=== PATIENT | male | born 1965 | race Caucasian/White ===

== ENCOUNTER 2017-10-25 17:25 | Emergency (ER) | payer OTHER ==
[~2017-10-25] VITALS: Ht 185.4 cm; Wt 90.9 kg
[2017-10-25] MEDS ORDERED: LISI-661 PO (17:30)
[2017-10-25] MEDS ORDERED: ACETAMINOPHEN 500 MG TABLET PO ONE (18:45)
[2017-10-25 19:03] LABS: ANION GAP 7 mmol/L (8-16); CALCIUM, TOTAL 8.6 mg/dL (8.8-10.5); CARBON DIOXIDE 29 mmol/L (22-29); CHLORIDE 103 mmol/L (98-107); CREATININE 0.92 mg/dL (0.60-1.30); GLOMERULAR FILTR. RATE CALC > 60 mL/min (>60); POTASSIUM 4.4 mmol/L (3.5-5.1); SODIUM SERUM 139 mmol/L (136-145); UREA NITROGEN, BLOOD 19 mg/dL (7-18)
[2017-10-25 19:05] LABS: BASOPHILS % (AUTO) 0.2 % (0.0-2.0); EOSINOPHILS % (AUTO) 1.6 % (1.0-6.0); HEMOGLOBIN 14.5 g/dL (13.5-17.5); LYMPHOCYTES # (AUTO) 1.7 K/uL (1.0-4.8); LYMPHOCYTES % (AUTO) 21.6 % (22.0-44.0); MEAN CORPUSCULAR HEMOGLOBIN 31.1 pg (26.0-34.0); MEAN CORPUSCULAR HGB CONC 34.5 G/dL (31.0-37.0); MEAN CORPUSCULAR VOLUME 90 fL (80-100); MONOCYTES # (AUTO) 0.6 K/uL (0.1-1.0); MONOCYTES % (AUTO) 7.1 % (2.0-9.0); NEUTROPHILS # (AUTO) 5.6 K/uL (1.8-7.7); NEUTROPHILS % (AUTO) 69.5 % (40.0-70.0); PLATELET COUNT (AUTO) 190 K/uL (150-450); RED BLOOD CELL COUNT(AUTO) 4.65 MIL/uL (4.50-5.90); RED CELL DISTRIBUTION WIDTH 13.9 % (11.5-14.5)
[2017-10-25 19:38] VITALS: BP 124/73
== END 2017-10-25 19:50 | disposition home or self-care (01) ==
LOC: EMS 17:29
DX: R51 Headache (principal); R42 Dizziness and giddiness; I10 Essential (primary) hypertension; J45.909 Unspecified asthma, uncomplicated
CPT/HCPCS: 70450; 93005; 99285

== ENCOUNTER 2017-12-25 16:43 | Emergency (ER) | payer OTHER ==
[~2017-12-25] VITALS: Ht 180.3 cm; Wt 90.9 kg
[~2017-12-25 16:43] MED LIST: LISI-661 PO
[2017-12-25 21:45] VITALS: BP 148/90
== END 2017-12-25 21:54 | disposition home or self-care (01) ==
LOC: EMS 16:44
DX: G91.9 Hydrocephalus, unspecified (principal); J45.909 Unspecified asthma, uncomplicated; I10 Essential (primary) hypertension
CPT/HCPCS: 70450; 93005; 99284

== ENCOUNTER 2018-02-14 13:51 | Emergency (ER) | payer OTHER ==
[~2018-02-14] VITALS: Ht 167.6 cm; Wt 100.0 kg
[2018-02-14] MEDS ORDERED: IBUPROFEN 800 MG TABLET PO ONE (16:15)
[2018-02-14 16:45] VITALS: BP 126/78
== END 2018-02-14 16:51 | disposition home or self-care (01) ==
LOC: EMS 14:03
DX: R51 Headache (principal); F32.9 Major depressive disorder, single episode, unspecified; I10 Essential (primary) hypertension; J45.909 Unspecified asthma, uncomplicated
CPT/HCPCS: 70450; 99284

== ENCOUNTER 2019-04-27 14:51 | Emergency (ER) | payer OTHER ==
[~2019-04-27] VITALS: Ht 177.8 cm; Wt 88.6 kg
[2019-04-27 17:22] LABS: BASOPHILS % (AUTO) 0.7 % (0.0-2.0); EOSINOPHILS % (AUTO) 2.2 % (1.0-6.0); HEMATOCRIT 41.3 % (41-53); HEMOGLOBIN 13.8 g/dL (13.5-17.5); LYMPHOCYTES # (AUTO) 1.8 K/uL (1.0-4.8); LYMPHOCYTES % (AUTO) 26.2 % (22.0-44.0); MEAN CORPUSCULAR HEMOGLOBIN 29.6 pg (26.0-34.0); MEAN CORPUSCULAR HGB CONC 33.4 G/dL (31.0-37.0); MEAN CORPUSCULAR VOLUME 89 fL (80-100); MONOCYTES # (AUTO) 0.7 K/uL (0.1-1.0); MONOCYTES % (AUTO) 10.6 % (2.0-9.0); NEUTROPHILS % (AUTO) 60.3 % (40.0-70.0); PLATELET COUNT (AUTO) 181 K/uL (150-450); RED BLOOD CELL COUNT(AUTO) 4.65 MIL/uL (4.50-5.90); RED CELL DISTRIBUTION WIDTH 13.9 % (11.5-14.5)
[2019-04-27 17:40] LABS: ANION GAP 4 mmol/L (8-16); CALCIUM, TOTAL 8.8 mg/dL (8.8-10.5); CARBON DIOXIDE 31 mmol/L (22-29); CHLORIDE 107 mmol/L (98-107); CREATININE 0.83 mg/dL (0.60-1.30); GLOMERULAR FILTR. RATE CALC > 60 mL/min (>60); GLUCOSE,RANDOM 84 mg/dL (70-110); POTASSIUM 4.8 mmol/L (3.5-5.1); SODIUM SERUM 142 mmol/L (136-145); UREA NITROGEN, BLOOD 8 mg/dL (7-18)
[2019-04-27 17:45] LABS: B-TYPE NATRIURETIC PEPTIDE 22 pg/mL (0-100)
[2019-04-27 17:46] LABS: ALANINE AMINOTRANSFERASE 37 U/L (12-78); ALBUMIN 3.8 g/dL (3.4-5.0); ALKALINE PHOSPHATASE 111 U/L (46-116); ASPARTATE AMINOTRANSFERASE 21 U/L (15-37); BILIRUBIN,TOTAL 0.3 mg/dL (0.1-1.0); TOTAL PROTEIN, SERUM 7.6 g/dL (6.4-8.2)
[2019-04-27 19:50] VITALS: BP 116/71
== END 2019-04-27 19:45 | disposition home or self-care (01) ==
LOC: EMS 14:52
DX: R60.0 Localized edema (principal); L03.116 Cellulitis of left lower limb; L03.115 Cellulitis of right lower limb; R06.09 Other forms of dyspnea; J45.909 Unspecified asthma, uncomplicated; I10 Essential (primary) hypertension; Z79.899 Other long term (current) drug therapy
CPT/HCPCS: 93005; 93970

== ENCOUNTER 2019-06-19 05:57 | Emergency (ER) | payer OTHER ==
[~2019-06-19] VITALS: Ht 175.3 cm; Wt 90.9 kg
[2019-06-19 07:22] LABS: BASOPHILS % (AUTO) 0.5 % (0.0-2.0); EOSINOPHILS % (AUTO) 2.7 % (1.0-6.0); HEMATOCRIT 40.7 % (41-53); HEMOGLOBIN 13.4 g/dL (13.5-17.5); LYMPHOCYTES % (AUTO) 27.9 % (22.0-44.0); MEAN CORPUSCULAR HGB CONC 32.8 G/dL (31.0-37.0); MEAN CORPUSCULAR VOLUME 91 fL (80-100); MONOCYTES % (AUTO) 13.6 % (2.0-9.0); NEUTROPHILS # (AUTO) 4.1 K/uL (1.8-7.7); NEUTROPHILS % (AUTO) 55.3 % (40.0-70.0); PLATELET COUNT (AUTO) 170 K/uL (150-450); RED BLOOD CELL COUNT(AUTO) 4.46 MIL/uL (4.50-5.90); RED CELL DISTRIBUTION WIDTH 14.7 % (11.5-14.5)
[2019-06-19 07:35] LABS: ANION GAP 9 mmol/L (8-16); CALCIUM, TOTAL 8.6 mg/dL (8.8-10.5); CARBON DIOXIDE 27 mmol/L (22-29); CHLORIDE 103 mmol/L (98-107); CREATININE 0.76 mg/dL (0.60-1.30); GLOMERULAR FILTR. RATE CALC > 60 mL/min (>60); GLUCOSE,RANDOM 83 mg/dL (70-110); POTASSIUM 3.7 mmol/L (3.5-5.1); SODIUM SERUM 139 mmol/L (136-145); UREA NITROGEN, BLOOD 16 mg/dL (7-18)
[2019-06-19 07:48] LABS: B-TYPE NATRIURETIC PEPTIDE 6 pg/mL (0-100)
[2019-06-19 07:59] LABS: ALANINE AMINOTRANSFERASE 29 U/L (12-78); ALBUMIN 4.1 g/dL (3.4-5.0); ALKALINE PHOSPHATASE 98 U/L (46-116); ASPARTATE AMINOTRANSFERASE 14 U/L (15-37); BILIRUBIN,TOTAL 0.3 mg/dL (0.1-1.0); CREATINE KINASE, TOTAL ONLY 185 U/L (39-308); TOTAL PROTEIN, SERUM 7.5 g/dL (6.4-8.2)
[2019-06-19 09:50] VITALS: BP 119/74
== END 2019-06-19 10:01 | disposition home or self-care (01) ==
LOC: EMS 05:58
DX: I83.93 Asymptomatic varicose veins of bilateral lower extremities (principal); R60.0 Localized edema; J45.909 Unspecified asthma, uncomplicated; I10 Essential (primary) hypertension; Z79.899 Other long term (current) drug therapy
CPT/HCPCS: 93005; 93970

== ENCOUNTER 2021-06-01 09:45 | Emergency (ER) | payer OTHER ==
[~2021-06-01] VITALS: Ht 172.7 cm; Wt 100.0 kg
[~2021-06-01 09:45] MED LIST changes: -LISI-661 PO; +LISI-893 PO
[2021-06-01 10:26] LABS: COVID AG,FIA SOURCE NASOPHARYNGEAL
[2021-06-01] MEDS ORDERED: ALBUTEROL SULFATE 5 MG/ML 20 ML NEB SOLN [BULK] NEB ONE (10:30)
[2021-06-01] MEDS ORDERED: ACETAMINOPHEN 500 MG TABLET PO ONE (10:30)
[2021-06-01 11:06] LABS: BASOPHILS % (AUTO) 0.3 % (0.0-2.0); EOSINOPHILS % (AUTO) 0.7 % (1.0-6.0); HEMATOCRIT 35.1 % (41-53); HEMOGLOBIN 11.8 g/dL (13.5-17.5); LYMPHOCYTES # (AUTO) 1.1 K/uL (1.0-4.8); LYMPHOCYTES % (AUTO) 12.5 % (22.0-44.0); MEAN CORPUSCULAR HEMOGLOBIN 30.9 pg (26.0-34.0); MEAN CORPUSCULAR HGB CONC 33.5 G/dL (31.0-37.0); MEAN CORPUSCULAR VOLUME 92 fL (80-100); MONOCYTES # (AUTO) 0.8 K/uL (0.1-1.0); MONOCYTES % (AUTO) 9.1 % (2.0-9.0); NEUTROPHILS # (AUTO) 6.8 K/uL (1.8-7.7); NEUTROPHILS % (AUTO) 77.4 % (40.0-70.0); PLATELET COUNT (AUTO) 134 K/uL (150-450); RED BLOOD CELL COUNT(AUTO) 3.81 MIL/uL (4.50-5.90); RED CELL DISTRIBUTION WIDTH 13.9 % (11.5-14.5)
[2021-06-01 11:12] LABS: ANION GAP 5 mmol/L (8-16); CALCIUM, TOTAL 8.5 mg/dL (8.8-10.5); CARBON DIOXIDE 28 mmol/L (22-29); CHLORIDE 106 mmol/L (98-107); CREATININE 0.87 mg/dL (0.60-1.30); GLOMERULAR FILTR. RATE CALC > 60 mL/min (>60); GLUCOSE,RANDOM 92 mg/dL (70-110); POTASSIUM 4.1 mmol/L (3.5-5.1); SODIUM SERUM 139 mmol/L (136-145); UREA NITROGEN, BLOOD 16 mg/dL (7-18)
[2021-06-01 11:18] LABS: ALANINE AMINOTRANSFERASE 213 U/L (12-78); ALBUMIN 3.5 g/dL (3.4-5.0); ALKALINE PHOSPHATASE 166 U/L (46-116); ASPARTATE AMINOTRANSFERASE 152 U/L (15-37); BILIRUBIN,TOTAL 0.4 mg/dL (0.1-1.0); TOTAL PROTEIN, SERUM 7.2 g/dL (6.4-8.2)
[2021-06-01] MEDS ORDERED: ALBUTEROL SULFATE HFA 90 MCG/PUFF 8 GM INHALER IH ONE (12:00)
[2021-06-01 13:49] LABS: B-TYPE NATRIURETIC PEPTIDE 42 pg/mL (0-100)
[2021-06-01 14:13] VITALS: BP 142/86
== END 2021-06-01 14:15 | disposition home or self-care (01) ==
LOC: EMS 09:46
DX: J45.909 Unspecified asthma, uncomplicated (principal); Z20.822 Contact with and (suspected) exposure to COVID-19
CPT/HCPCS: 36415; 71045; 80053; 83880; 84484; 85025; 87426; 94640; 99284; U0003; J3535; J7611

== ENCOUNTER 2021-12-31 15:47 | Emergency (ER) | payer OTHER ==
[~2021-12-31] VITALS: Ht 177.8 cm; Wt 90.9 kg
[2021-12-31] MEDS ORDERED: ALBUTEROL SULFATE HFA 90 MCG/PUFF 8 GM INHALER IH ONE (18:15)
[2021-12-31] MEDS ORDERED: DICLOFENAC SODIUM 1% 100 GM GEL [4GM] TP ONE (18:15)
[2021-12-31 21:22] VITALS: BP 130/75
== END 2021-12-31 21:37 | disposition home or self-care (01) ==
LOC: EMS 15:57
DX: M25.561 Pain in right knee (principal); J45.909 Unspecified asthma, uncomplicated; I10 Essential (primary) hypertension; Z79.899 Other long term (current) drug therapy
CPT/HCPCS: 94640; 99283; J3535

== ENCOUNTER 2022-01-08 13:34 | Emergency (ER) | payer OTHER ==
[~2022-01-08] VITALS: Ht 180.3 cm; Wt 90.9 kg
[2022-01-08] MEDS ORDERED: KETOROLAC TROMETHAMINE 60 MG/2 ML VIAL IM ONE (14:30)
[2022-01-08 15:02] VITALS: BP 149/91
[2022-01-08] MEDS ORDERED: IBUP-2070 PO (15:03)
== END 2022-01-08 15:30 | disposition home or self-care (01) ==
LOC: EMS 13:34
DX: M17.11 Unilateral primary osteoarthritis, right knee (principal); M25.561 Pain in right knee; I10 Essential (primary) hypertension; J45.909 Unspecified asthma, uncomplicated; Z79.899 Other long term (current) drug therapy
CPT/HCPCS: 96372; 99283; J1885; 29530

== ENCOUNTER 2022-01-10 20:44 | Emergency (ER) | payer OTHER ==
[~2022-01-10] VITALS: Ht 180.3 cm; Wt 90.9 kg
[~2022-01-10 20:44] MED LIST changes: +IBUP-2070 PO
[2022-01-10] MEDS ORDERED: LISI-659 PO (20:52)
[2022-01-10] MEDS ORDERED: DIPH25CA53 PO (20:52)
[2022-01-10] MEDS ORDERED: SERT-158 PO (20:52)
[2022-01-10] MEDS ORDERED: DICL-206 PO (22:15)
[2022-01-10 22:30] VITALS: BP 152/90
[2022-01-10] MEDS ORDERED: DICLOFENAC SODIUM 25 MG DR TABLET PO ONE (22:45)
== END 2022-01-10 23:48 | disposition home or self-care (01) ==
LOC: EMS 20:48
DX: M17.11 Unilateral primary osteoarthritis, right knee (principal); I10 Essential (primary) hypertension; F41.9 Anxiety disorder, unspecified; J45.909 Unspecified asthma, uncomplicated; Z79.899 Other long term (current) drug therapy
CPT/HCPCS: 99283

== ENCOUNTER 2022-05-08 10:46 | Emergency (ER) | payer OTHER ==
[~2022-05-08] VITALS: Ht 175.3 cm; Wt 102.3 kg
[~2022-05-08 10:46] MED LIST changes: +DICL-206 PO; +DIPH25CA53 PO; +LISI-659 PO; -LISI-893 PO; +SERT-158 PO
[2022-05-08] MEDS ORDERED: KETOROLAC TROMETHAMINE 60 MG/2 ML VIAL IM ONE (11:30)
[2022-05-08 11:39] LABS: BASOPHILS % (AUTO) 0.6 % (0.0-2.0); EOSINOPHILS % (AUTO) 1.8 % (1.0-6.0); HEMATOCRIT 38.9 % (41-53); HEMOGLOBIN 13.2 g/dL (13.5-17.5); LYMPHOCYTES # (AUTO) 1.7 K/uL (1.0-4.8); LYMPHOCYTES % (AUTO) 17.2 % (22.0-44.0); MEAN CORPUSCULAR HEMOGLOBIN 30.1 pg (26.0-34.0); MEAN CORPUSCULAR HGB CONC 33.8 G/dL (31.0-37.0); MEAN CORPUSCULAR VOLUME 89 fL (80-100); MONOCYTES # (AUTO) 0.9 K/uL (0.1-1.0); MONOCYTES % (AUTO) 8.6 % (2.0-9.0); NEUTROPHILS # (AUTO) 7.1 K/uL (1.8-7.7); NEUTROPHILS % (AUTO) 71.8 % (40.0-70.0); PLATELET COUNT (AUTO) 196 K/uL (150-450); RED BLOOD CELL COUNT(AUTO) 4.38 MIL/uL (4.50-5.90); RED CELL DISTRIBUTION WIDTH 13.9 % (11.5-14.5)
[2022-05-08 11:45] LABS: ANION GAP 7 mmol/L (8-16); CALCIUM, TOTAL 8.6 mg/dL (8.8-10.5); CARBON DIOXIDE 28 mmol/L (22-29); CHLORIDE 103 mmol/L (98-107); GLUCOSE,RANDOM 95 mg/dL (70-110); SODIUM SERUM 138 mmol/L (136-145); UREA NITROGEN, BLOOD 15 mg/dL (7-18)
[2022-05-08 11:47] LABS: GLOMERULAR FILTR. RATE CALC > 60 mL/min (>60)
[2022-05-08 11:50] LABS: ALANINE AMINOTRANSFERASE 27 U/L (12-78); ALBUMIN 3.5 g/dL (3.4-5.0); ALKALINE PHOSPHATASE 94 U/L (46-116); ASPARTATE AMINOTRANSFERASE 21 U/L (15-37); BILIRUBIN,TOTAL 0.5 mg/dL (0.1-1.0); LIPASE 48 U/L (73-393); TOTAL PROTEIN, SERUM 7.8 g/dL (6.4-8.2)
[2022-05-08 13:16] VITALS: BP 125/76
[2022-05-08] MEDS ORDERED: IBUP-1554 PO (13:25)
[2022-05-08] MEDS ORDERED: TRAM50TA4 PO (13:25)
== END 2022-05-08 14:30 | disposition home or self-care (01) ==
LOC: EMS 10:46
DX: M25.561 Pain in right knee (principal); I10 Essential (primary) hypertension; J45.909 Unspecified asthma, uncomplicated; F41.9 Anxiety disorder, unspecified; Z79.899 Other long term (current) drug therapy
CPT/HCPCS: 29505; 36415; 80053; 83690; 85025; 96372; 99283; J1885

== ENCOUNTER 2022-05-15 15:54 | Emergency (ER) | payer OTHER ==
[~2022-05-15] VITALS: Ht 172.7 cm; Wt 100.0 kg
[~2022-05-15 15:54] MED LIST changes: +IBUP-1554 PO; +TRAM50TA4 PO
[2022-05-15 15:55] VITALS: BP 144/84
[2022-05-15 16:50] LABS: BASOPHILS % (AUTO) 0.6 % (0.0-2.0); EOSINOPHILS % (AUTO) 1.8 % (1.0-6.0); HEMATOCRIT 40.2 % (41-53); HEMOGLOBIN 13.4 g/dL (13.5-17.5); LYMPHOCYTES # (AUTO) 1.6 K/uL (1.0-4.8); LYMPHOCYTES % (AUTO) 16.5 % (22.0-44.0); MEAN CORPUSCULAR HEMOGLOBIN 29.9 pg (26.0-34.0); MEAN CORPUSCULAR HGB CONC 33.3 G/dL (31.0-37.0); MEAN CORPUSCULAR VOLUME 90 fL (80-100); MONOCYTES # (AUTO) 0.8 K/uL (0.1-1.0); MONOCYTES % (AUTO) 7.9 % (2.0-9.0); NEUTROPHILS # (AUTO) 7.1 K/uL (1.8-7.7); NEUTROPHILS % (AUTO) 73.2 % (40.0-70.0); PLATELET COUNT (AUTO) 219 K/uL (150-450); RED BLOOD CELL COUNT(AUTO) 4.48 MIL/uL (4.50-5.90); RED CELL DISTRIBUTION WIDTH 13.6 % (11.5-14.5)
[2022-05-15 16:54] LABS: ANION GAP 7 mmol/L (8-16); CARBON DIOXIDE 30 mmol/L (22-29); CHLORIDE 102 mmol/L (98-107); GLOMERULAR FILTR. RATE CALC > 60 mL/min (>60); GLUCOSE,RANDOM 93 mg/dL (70-110); SODIUM SERUM 139 mmol/L (136-145); UREA NITROGEN, BLOOD 17 mg/dL (7-18)
[2022-05-15 16:57] LABS: ALANINE AMINOTRANSFERASE 39 U/L (12-78); ALKALINE PHOSPHATASE 102 U/L (46-116); AMYLASE 34 U/L (25-115); ASPARTATE AMINOTRANSFERASE 19 U/L (15-37); BILIRUBIN,TOTAL 0.3 mg/dL (0.1-1.0); TOTAL PROTEIN, SERUM 8.5 g/dL (6.4-8.2)
== END 2022-05-15 17:22 | disposition home or self-care (01) ==
LOC: EMS 15:55
DX: K29.60 Other gastritis without bleeding (principal); I10 Essential (primary) hypertension; J45.909 Unspecified asthma, uncomplicated; F41.9 Anxiety disorder, unspecified; Z79.899 Other long term (current) drug therapy
CPT/HCPCS: 80053; 82150; 85025; 99283

== ENCOUNTER 2022-05-29 10:33 | Emergency (ER) | payer OTHER ==
[~2022-05-29] VITALS: Ht 182.9 cm; Wt 100.0 kg
[~2022-05-29 10:33] MED LIST changes: -IBUP-1554 PO
[2022-05-29 11:07] VITALS: BP 138/68
[2022-05-29] MEDS ORDERED: KETOROLAC TROMETHAMINE 60 MG/2 ML VIAL IM ONE (12:45)
== END 2022-05-29 13:02 | disposition home or self-care (01) ==
LOC: EMS 10:33
DX: M13.862 Other specified arthritis, left knee (principal); M13.861 Other specified arthritis, right knee; I10 Essential (primary) hypertension; F41.9 Anxiety disorder, unspecified; J45.909 Unspecified asthma, uncomplicated; Z79.899 Other long term (current) drug therapy
CPT/HCPCS: 99283; 96372; J1885

== ENCOUNTER 2022-06-17 18:28 | Emergency (ER) | payer OTHER ==
[~2022-06-17] VITALS: Ht 167.6 cm; Wt 84.1 kg
[2022-06-17] MEDS ORDERED: KETOROLAC TROMETHAMINE 30 MG/ML VIAL IM ONE (20:30)
[2022-06-17 21:04] VITALS: BP 135/75
== END 2022-06-17 21:06 | disposition home or self-care (01) ==
LOC: EMS 18:28
DX: M17.0 Bilateral primary osteoarthritis of knee (principal); I10 Essential (primary) hypertension; J45.909 Unspecified asthma, uncomplicated; F41.9 Anxiety disorder, unspecified; Z79.899 Other long term (current) drug therapy
CPT/HCPCS: 99283; 96372; J1885

== ENCOUNTER 2022-07-04 12:41 | Emergency (ER) | payer OTHER ==
[~2022-07-04] VITALS: Ht 177.8 cm; Wt 106.8 kg
[2022-07-04] MEDS ORDERED: ALBU8HFA IH (12:54)
[2022-07-04 14:56] LABS: GLUCOMETER DEV NAME(LOC) ERT.5; GLUCOSE,POINT OF CARE 107 MG/DL (70-110)
[2022-07-04] MEDS ORDERED: GABA-1181 PO (15:20)
[2022-07-04 15:30] VITALS: BP 129/75
== END 2022-07-04 15:32 | disposition home or self-care (01) ==
LOC: EMS 12:41
DX: M79.604 Pain in right leg (principal); M79.605 Pain in left leg; M79.671 Pain in right foot; M79.672 Pain in left foot; I10 Essential (primary) hypertension; J45.909 Unspecified asthma, uncomplicated; F41.9 Anxiety disorder, unspecified; Z79.899 Other long term (current) drug therapy
CPT/HCPCS: 82948; 82962; 99283

== ENCOUNTER 2023-05-13 13:50 | Emergency (ER) | payer OTHER ==
[~2023-05-13] VITALS: Ht 172.7 cm; Wt 113.0 kg
[~2023-05-13 13:50] MED LIST changes: +ACET-66 PO; +ALBU18HF12 IH; -DICL-206 PO; +DICL-208 PO; +GABA-1181 PO; +IBUP-1492 PO; +IBUP-1554 PO; -IBUP-2070 PO; +ISOT40CA PO; +TRAM-559 PO; -TRAM50TA4 PO
[2023-05-13 14:07] VITALS: TEMP 98.3
[2023-05-13] MEDS ORDERED: KETOROLAC TROMETHAMINE 30 MG/ML VIAL IM ONE (15:15)
[2023-05-13] MEDS ORDERED: HYDROCODONE/ACETAMINOPHEN 5-325 MG TABLET PO ONE (15:15)
[2023-05-13 16:38] VITALS: BP 141/82; PULSE 66; RESP 20
== END 2023-05-13 17:02 | disposition home or self-care (01) ==
LOC: EMS 14:12
DX: M17.0 Bilateral primary osteoarthritis of knee (principal); F41.9 Anxiety disorder, unspecified; F32.A Depression, unspecified; I10 Essential (primary) hypertension
CPT/HCPCS: 99283; 96372; J1885

== ENCOUNTER 2023-06-15 12:19 | Emergency (ER) | payer OTHER ==
[~2023-06-15] VITALS: Ht 172.7 cm; Wt 97.7 kg
[2023-06-15 12:24] VITALS: TEMP 98.3
[2023-06-15 13:05] VITALS: BP 139/90; PULSE 61; RESP 16
== END 2023-06-15 13:41 | disposition home or self-care (01) ==
LOC: EMS 12:19
DX: M17.11 Unilateral primary osteoarthritis, right knee (principal); F41.9 Anxiety disorder, unspecified; F32.A Depression, unspecified; I10 Essential (primary) hypertension
CPT/HCPCS: 99281; Z7502

== ENCOUNTER 2024-06-11 10:40 | Emergency (ER) | payer OTHER ==
[~2024-06-11] VITALS: Ht 172.7 cm; Wt 111.4 kg
[~2024-06-11 10:40] MED LIST changes: -ACET-66 PO; -DICL-208 PO; +DICL50TA10 PO; -DIPH25CA53 PO; -IBUP-1492 PO; -IBUP-1554 PO; -TRAM-559 PO
[2024-06-11 10:42] VITALS: BP 139/71; TEMP 98.5
[2024-06-11] MEDS ORDERED: LISI-894 PO (10:50)
[2024-06-11] MEDS ORDERED: ATOR10TA PO (10:50)
[2024-06-11] MEDS ORDERED: SULF500T60 PO (10:50)
[2024-06-11] MEDS ORDERED: SERT-158 PO (10:50)
[2024-06-11] MEDS ORDERED: RIFA300C63 PO (10:50)
[2024-06-11] MEDS ORDERED: [UNRECOGNIZED DRUG - CODE] SQ (10:50)
[2024-06-11] MEDS ORDERED: MONT-35 PO (10:50)
[2024-06-11] MEDS ORDERED: AMLO2.5T96 PO (10:50)
[2024-06-11] MEDS ORDERED: HYDR25TA2 PO (10:50)
[2024-06-11] MEDS ORDERED: DIPH25TA19 PO (10:50)
[2024-06-11 11:22] LABS: BASOPHILS % (AUTO) 0.5 % (0.0-2.0); EOSINOPHILS % (AUTO) 0.2 % (1.0-6.0); HEMOGLOBIN 12.4 g/dL (13.5-17.5); LYMPHOCYTES # (AUTO) 1.4 K/uL (1.0-4.8); MEAN CORPUSCULAR HEMOGLOBIN 30.2 pg (26.0-34.0); MEAN CORPUSCULAR HGB CONC 32.5 G/dL (31.0-37.0); MEAN CORPUSCULAR VOLUME 93 fL (80-100); MONOCYTES # (AUTO) 1.2 K/uL (0.1-1.0); MONOCYTES % (AUTO) 8.9 % (2.0-9.0); NEUTROPHILS # (AUTO) 10.4 K/uL (1.8-7.7); NEUTROPHILS % (AUTO) 79.4 % (40.0-70.0); PLATELET COUNT (AUTO) 185 K/uL (150-450); RED BLOOD CELL COUNT(AUTO) 4.09 MIL/uL (4.50-5.90); RED CELL DISTRIBUTION WIDTH 14.6 % (11.5-14.5); WHITE BLOOD COUNT (AUTO) 13.1 K/uL (4.5-11.0)
[2024-06-11] MEDS: ALBUTEROL SULFATE 2.5 MG/0.5 ML NEB SOLUTION NEB ONE (11:27)
[2024-06-11] MEDS: IPRATROPIUM BROMIDE 0.5 MG/2.5 ML NEB SOLUTION NEB ONE ×2 (11:27→13:01)
[2024-06-11 11:31] VITALS: PULSE 78; RESP 22; O2SAT 95
[2024-06-11] MEDS: MethylPREDNISolone SOD SUCC 125 MG/2 ML VIAL IVP ONE (11:35)
[2024-06-11] MEDS: KETOROLAC TROMETHAMINE 30 MG/ML VIAL IVP ONE (11:35)
[2024-06-11 11:39] LABS: TROPONIN I-HIGH SENSITIVITY 5 ng/L (<76)
[2024-06-11 11:42] LABS: ANION GAP 2 mmol/L (8-16); CALCIUM, TOTAL 9.1 mg/dL (8.8-10.5); CARBON DIOXIDE 33 mmol/L (22-29); CHLORIDE 98 mmol/L (98-107); CREATININE 0.96 mg/dL (0.60-1.30); GLOMERULAR FILTR. RATE CALC > 60 mL/min (>60); GLUCOSE,RANDOM 93 mg/dL (70-110); POTASSIUM 3.8 mmol/L (3.5-5.1); SODIUM SERUM 133 mmol/L (136-145); UREA NITROGEN, BLOOD 11 mg/dL (7-18)
[2024-06-11 11:43] VITALS: PULSE 80; RESP 20; O2SAT 100
[2024-06-11 12:04] LABS: B-TYPE NATRIURETIC PEPTIDE 61 pg/mL (0-100)
[2024-06-11] MEDS ORDERED: ALBUTEROL SULFATE 2.5 MG/0.5 ML NEB SOLUTION NEB ONE (12:45)
[2024-06-11] MEDS ORDERED: 0.9% SODIUM CHLORIDE 5 ML NEB SOLUTION NEB ONE (12:58)
[2024-06-11] MEDS: ALBUTEROL SULFATE 2.5 MG/0.5 ML 5 ML NEB SOLUTION NEB ONE (13:01)
[2024-06-11 13:03] VITALS: PULSE 84; RESP 26; O2SAT 96
[2024-06-11] MEDS ORDERED: ACET-66 PO (13:07)
[2024-06-11] MEDS ORDERED: IBUP-1554 PO (13:07)
[2024-06-11] MEDS ORDERED: ALBU18HF12 IH (13:07)
[2024-06-11 13:40] VITALS: PULSE 82; RESP 20; O2SAT 100
== END 2024-06-11 14:00 | disposition home or self-care (01) ==
LOC: EMS 10:45
DX: R06.03 Acute respiratory distress (principal); J45.901 Unspecified asthma with (acute) exacerbation; M13.861 Other specified arthritis, right knee; R51.9 Headache, unspecified; I10 Essential (primary) hypertension
CPT/HCPCS: 99285; 96374; 71045; 96375; 80048; 83880; 84484; 85025; 36415; 94640; 93005; J1885; J2919; J7613

== ENCOUNTER 2025-03-03 15:04 | Emergency (ER) | payer OTHER ==
[~2025-03-03] VITALS: Ht 182.9 cm; Wt 126.4 kg
[~2025-03-03 15:04] MED LIST changes: +AMLO5TAB66 PO; +ATOR10TA PO; +CEFD300C18 PO; +CHOL200059 PO; +CLIN60LO6 TP; -DICL50TA10 PO; +DOXY-354 PO; +FLUO15CR TP; -GABA-1181 PO; -ISOT40CA PO; -LISI-659 PO; +LISI-894 PO; +MONT-35 PO; +OSEL75CA17 PO; +PANT-31 PO; +PRED-554 PO; +SECU300P SQ
[2025-03-03 16:34] VITALS: PULSE 79; RESP 24; O2SAT 97
[2025-03-03] MEDS: IPRATROPIUM BROMIDE 0.5 MG/2.5 ML NEB SOLUTION NEB ONE ×2 (16:34→18:19)
[2025-03-03] MEDS: ALBUTEROL SULFATE 2.5 MG/0.5 ML NEB SOLUTION NEB ONE (16:34)
[2025-03-03 16:48] VITALS: PULSE 67; RESP 24; O2SAT 100
[2025-03-03] MEDS: PredniSONE 20 MG TABLET PO ONE (16:55)
[2025-03-03 17:08] LABS: COVID AG,FIA SOURCE NASAL SWAB
[2025-03-03 17:29] LABS: SARS-COV2 (COVID) ANTIGEN,FIA Negative (Negative)
[2025-03-03 17:31] LABS: INFLUENZA TYPE A NEGATIVE FOR TYPE A (NEGATIVE); INFLUENZA TYPE B NEGATIVE FOR TYPE B (NEGATIVE)
[2025-03-03] MEDS ORDERED: 0.9% SODIUM CHLORIDE 15 ML NEB SOLUTION NEB ONE (18:17)
[2025-03-03] MEDS: ALBUTEROL SULFATE 2.5 MG/0.5 ML 5 ML NEB SOLUTION NEB ONE (18:19)
[2025-03-03 18:25] VITALS: PULSE 78; RESP 20; O2SAT 96
[2025-03-03 18:34] VITALS: BP 139/69; TEMP 98.1; O2SAT 95
[2025-03-03 18:35] VITALS: PULSE 78; RESP 20; O2SAT 96
[2025-03-03 19:25] VITALS: PULSE 100; RESP 20; O2SAT 98
[2025-03-03] MEDS ORDERED: PRED-554 PO (19:54)
[2025-03-07] MEDS ORDERED: LISI40TA9 PO (13:05)
[2025-03-07] MEDS ORDERED: AMLO10TA55 PO (13:05)
[2025-03-07] MEDS ORDERED: DIPH-1237 PO (13:05)
[2025-03-07] MEDS ORDERED: HYDR25TA PO (13:05)
[2025-03-07] MEDS ORDERED: FLUT10.67 IH (13:05)
[2025-03-07] MEDS ORDERED: ALBU18HF12 IH (13:05)
[2025-03-07] MEDS ORDERED: TAMS0.4C94 PO (13:05)
[2025-03-07] MEDS ORDERED: CHOL500043 PO (21:44)
== END 2025-03-03 19:59 | disposition home or self-care (01) ==
LOC: EMS 15:04
DX: J45.901 Unspecified asthma with (acute) exacerbation (principal); I10 Essential (primary) hypertension; E78.00 Pure hypercholesterolemia, unspecified; F32.A Depression, unspecified; Z79.52 Long term (current) use of systemic steroids; Z79.899 Other long term (current) drug therapy; Z20.822 Contact with and (suspected) exposure to COVID-19
CPT/HCPCS: 99285; 87426; 87804; 94640; J7512; 94644

== ENCOUNTER 2025-04-29 15:36 | Emergency (ER) | payer OTHER ==
[~2025-04-29] VITALS: Ht 177.8 cm; Wt 123.6 kg
[~2025-04-29 15:36] MED LIST changes: +AMLO10TA55 PO; -AMLO5TAB66 PO; +AMOX1TAB15 PO; -CEFD300C18 PO; -CLIN60LO6 TP; +DIPH-1237 PO; -DOXY-354 PO; +FLUT10.67 IH; +FLUT1BLS19 IH; -LISI-894 PO; -OSEL75CA17 PO; -PANT-31 PO; +TAMS0.4C94 PO
[2025-04-29 15:40] VITALS: TEMP 97.9
[2025-04-29 16:29] LABS: COVID AG,FIA SOURCE NASAL SWAB
[2025-04-29 16:55] LABS: SARS-COV2 (COVID) ANTIGEN,FIA Negative (Negative)
[2025-04-29 16:56] LABS: INFLUENZA TYPE A NEGATIVE FOR TYPE A (NEGATIVE); INFLUENZA TYPE B NEGATIVE FOR TYPE B (NEGATIVE)
[2025-04-29] MEDS: ACETAMINOPHEN 500 MG TABLET PO ONE (17:27)
[2025-04-29] MEDS: GuaiFENesin/D-METHORPHAN [SUGAR-FREE] 200-20MG/10 ML SYRUP UDCUP PO ONE (17:27)
[2025-04-29] MEDS: PredniSONE 20 MG TABLET PO ONE (17:28)
[2025-04-29] MEDS: ALBUTEROL SULFATE 2.5 MG/0.5 ML 5 ML NEB SOLUTION NEB ONE (17:36)
[2025-04-29] MEDS: IPRATROPIUM BROMIDE 0.5 MG/2.5 ML NEB SOLUTION NEB ONE (17:36)
[2025-04-29 17:38] VITALS: PULSE 66; RESP 20; O2SAT 100
[2025-04-29 17:39] VITALS: PULSE 66; RESP 20; O2SAT 100
[2025-04-29 18:56] VITALS: BP 115/61; PULSE 99; RESP 20; O2SAT 96
[2025-04-29] MEDS ORDERED: GUAIFDM PO (19:11)
[2025-04-29] MEDS ORDERED: PRED-554 PO (19:11)
== END 2025-04-29 21:08 | disposition home or self-care (01) ==
LOC: EMS 15:37
DX: J44.1 Chronic obstructive pulmonary disease with (acute) exacerbation (principal); R11.0 Nausea; I10 Essential (primary) hypertension; E78.00 Pure hypercholesterolemia, unspecified; F41.9 Anxiety disorder, unspecified; F32.A Depression, unspecified; Z79.51 Long term (current) use of inhaled steroids; Z79.52 Long term (current) use of systemic steroids; Z79.899 Other long term (current) drug therapy; Z20.822 Contact with and (suspected) exposure to COVID-19
CPT/HCPCS: 99284; 71045; 87426; 87804; 94640; J7512; 94644

== ENCOUNTER 2025-05-13 10:31 | Emergency (ER) | payer OTHER ==
[~2025-05-13] VITALS: Ht 175.3 cm; Wt 109.1 kg
[~2025-05-13 10:31] MED LIST changes: +GUAIFDM PO
[2025-05-13 10:37] VITALS: BP 123/94; PULSE 106; RESP 20; TEMP 98; O2SAT 99
[2025-05-13] MEDS ORDERED: LIDO-57 TP (11:28)
[2025-05-13] MEDS ORDERED: IBUP-1492 PO (11:28)
[2025-05-13] MEDS ORDERED: ACET-3385 PO (11:28)
[2025-05-13] MEDS: KETOROLAC TROMETHAMINE 30 MG/ML VIAL IM ONE (11:30)
[2025-05-13] MEDS: ACETAMINOPHEN 500 MG TABLET PO ONE (11:30)
[2025-05-13] MEDS: LIDOCAINE 5% TRANSDERMAL PATCH TD ONE (11:31)
== END 2025-05-13 11:40 | disposition home or self-care (01) ==
LOC: EMS 10:31
DX: M54.50 Low back pain, unspecified (principal); G89.29 Other chronic pain; F41.9 Anxiety disorder, unspecified; F32.A Depression, unspecified; J45.909 Unspecified asthma, uncomplicated; E78.00 Pure hypercholesterolemia, unspecified; I10 Essential (primary) hypertension; Z98.890 Other specified postprocedural states; Z79.52 Long term (current) use of systemic steroids; Z79.51 Long term (current) use of inhaled steroids; Z79.899 Other long term (current) drug therapy
CPT/HCPCS: 99283; 96372; J1885

== ENCOUNTER 2025-05-26 12:03 | Emergency (ER) | payer OTHER ==
[~2025-05-26] VITALS: Ht 170.2 cm; Wt 119.5 kg
[~2025-05-26 12:03] MED LIST changes: +ACET-3385 PO; +IBUP-1492 PO; +LIDO-57 TP
[2025-05-26 12:06] VITALS: BP 120/62; PULSE 91; RESP 20; TEMP 98.1; O2SAT 98
[2025-05-26] MEDS ORDERED: SERT-439 PO (12:12)
[2025-05-26] MEDS ORDERED: LISI-1024 PO (12:12)
[2025-05-26] MEDS ORDERED: MONT-40 PO (12:12)
[2025-05-26] MEDS ORDERED: FLUT1BLS6 IH (12:12)
[2025-05-26] MEDS ORDERED: ATOR10TA69 PO (12:12)
[2025-05-26] MEDS ORDERED: HYDR25TA PO (12:12)
[2025-05-26] MEDS ORDERED: METH-812 PO (13:39)
== END 2025-05-26 20:00 | disposition home or self-care (01) ==
LOC: EMS 12:07
DX: G89.29 Other chronic pain (principal); M54.50 Low back pain, unspecified; I10 Essential (primary) hypertension; E78.00 Pure hypercholesterolemia, unspecified; F32.A Depression, unspecified; F41.9 Anxiety disorder, unspecified; J45.909 Unspecified asthma, uncomplicated; Z79.51 Long term (current) use of inhaled steroids; Z79.899 Other long term (current) drug therapy
CPT/HCPCS: 99283; Z7502

== ENCOUNTER 2025-11-15 12:02 | Emergency (ER) | payer OTHER ==
[~2025-11-15] VITALS: Ht 170.2 cm; Wt 127.0 kg
[~2025-11-15 12:02] MED LIST changes: -ACET-3385 PO; -AMOX1TAB15 PO; -ATOR10TA PO; +ATOR10TA69 PO; -DIPH-1237 PO; -FLUO15CR TP; -FLUT10.67 IH; -FLUT1BLS19 IH; +FLUT1BLS6 IH; -GUAIFDM PO; +HYDR25TA PO; -IBUP-1492 PO; -LIDO-57 TP; +LISI-1024 PO; +METH-812 PO; -MONT-35 PO; +MONT-40 PO; -PRED-554 PO; -SECU300P SQ; -SERT-158 PO; +SERT-439 PO
[2025-11-15 12:12] VITALS: TEMP 97.9
[2025-11-15 12:45] VITALS: BP 130/65; PULSE 72; RESP 16; O2SAT 99
[2025-11-15 13:34] LABS: PLATELET COUNT (AUTO) 197 K/uL (150-450); RED BLOOD CELL COUNT(AUTO) 4.00 MIL/uL (4.50-5.90); RED CELL DISTRIBUTION WIDTH 14.8 % (11.5-14.5); WHITE BLOOD COUNT (AUTO) 8.8 K/uL (4.5-11.0)
[2025-11-15 13:44] LABS: CALCIUM, TOTAL 8.6 mg/dL (8.8-10.5); CREATININE 1.15 mg/dL (0.60-1.30); GLOMERULAR FILTR. RATE CALC > 60 mL/min (>60); GLUCOSE,RANDOM 88 mg/dL (70-110); SODIUM SERUM 140 mmol/L (136-145); UREA NITROGEN, BLOOD 16 mg/dL (7-18)
[2025-11-15] MEDS: KETOROLAC TROMETHAMINE 30 MG/ML VIAL IVP ONE (14:08)
[2025-11-15] MEDS: METOCLOPRAMIDE HCL 5 MG/ML 2 ML VIAL IVP ONE (14:08)
[2025-11-15] MEDS: SODIUM CHLORIDE 0.9% 1,000 ML IV ONE (14:09)
[2025-11-15 15:47] LABS: COVID AG,FIA SOURCE NASAL SWAB
[2025-11-15 16:11] LABS: SARS-COV2 (COVID) ANTIGEN,FIA Negative (Negative)
[2025-11-15 16:12] LABS: INFLUENZA TYPE A NEGATIVE FOR TYPE A (NEGATIVE); INFLUENZA TYPE B NEGATIVE FOR TYPE B (NEGATIVE)
[2025-11-15] MEDS ORDERED: POLY119P3 PO (16:16)
[2025-11-15] MEDS ORDERED: LIDO-57 TP (16:16)
[2025-11-15] MEDS ORDERED: CYCL-448 PO (16:16)
== END 2025-11-15 16:59 | disposition home or self-care (01) ==
LOC: EMS 12:04
DX: G89.29 Other chronic pain (principal); M54.50 Low back pain, unspecified; K59.00 Constipation, unspecified; E78.00 Pure hypercholesterolemia, unspecified; F32.A Depression, unspecified; F41.9 Anxiety disorder, unspecified; I10 Essential (primary) hypertension; J45.909 Unspecified asthma, uncomplicated; Z59.00 Homelessness unspecified; Z79.51 Long term (current) use of inhaled steroids; Z79.899 Other long term (current) drug therapy; Z20.822 Contact with and (suspected) exposure to COVID-19
CPT/HCPCS: 99284; 96374; 96361; 96375; 87426; 80048; 85025; 87804; 36415; 74018; J1885; J2765; J7030